=== PATIENT | female | born 1965 | race Caucasian/White ===

== ENCOUNTER 2018-07-01 14:01 | Outpatient (CLI) | payer MEDICARE ==
--- NOTE | 2018-07-01 16:18 | RAD ---
TWO VIEW CHEST SERIES: 07/01/18 COMPARISON: 01/17/08 FINDINGS: There is no consolidation, effusion, or pneumothorax. The cardiac silhouette is normal in size. There is surgical change at the low cervical spine. Chest is otherwise similar in appearance. IMPRESSION: No focal consolidation. POS: C
== END 2018-07-01 14:02 | disposition home or self-care (01) ==
LOC: RAD-FRANK 14:01
PROVIDERS: ATTEND Nurse Practitioner Family
DX: J10.1 Influenza due to other identified influenza virus with other respiratory manifestations (principal); J44.9 Chronic obstructive pulmonary disease, unspecified; F17.200 Nicotine dependence, unspecified, uncomplicated; R68.89 Other general symptoms and signs
CPT/HCPCS: 71046

== ENCOUNTER 2018-10-22 10:57 | Outpatient (CLI) | payer MEDICARE ==
--- NOTE | 2018-10-22 12:17 | BD ---
DEXA BONE MINERAL DENSITY STUDY: HISTORY: Osteoporosis screening. COMPARISON: None available. FINDINGS: LUMBAR SPINE BMD (g/cm2) T-SCORE Z-SCORE L1 0.962 -0.3 0.6 L2 1.008 -0.2 0.8 L3 1.000 -0.8 0.3 L4 0.965 -0.9 0.2 WHO CLASSIFICATION: Normal. BMD (g/cm2) T-SCORE Z-SCORE FEMORAL NECK: 0.620 -2.1 -1.0 TOTAL LEFT HIP: 0.759 -1.5 -0.8 WHO CLASSIFICATION: Osteopenia. IMPRESSION: Osteopenia, left femoral neck and total left hip. POS: CET
== END 2018-10-22 10:58 | disposition home or self-care (01) ==
LOC: BICMAMMO 10:57
PROVIDERS: ATTEND Nurse Practitioner Family
DX: Z12.31 Encounter for screening mammogram for malignant neoplasm of breast (principal); Z13.820 Encounter for screening for osteoporosis; M85.89 Other specified disorders of bone density and structure, multiple sites; R92.1 Mammographic calcification found on diagnostic imaging of breast
CPT/HCPCS: 77063; 77067; 77080

== ENCOUNTER 2021-02-16 23:26 | Emergency (ER) | payer MEDICARE, SELFPAY ==
[2021-02-17] MEDS ORDERED: Ondansetron ODT 4 MG TAB ONE ×2 (00:29→03:39)
[2021-02-17] MEDS ORDERED: Acetaminophen 500 MG TAB ONE (00:29)
[2021-02-17] MEDS ORDERED: traMADol HCl 50 MG TAB ONE (03:39)
== END 2021-02-17 04:19 | disposition home or self-care (01) ==
LOC: ERS 23:26
DX: S62.365A Nondisplaced fracture of neck of fourth metacarpal bone, left hand, initial encounter for closed fracture (principal); S40.012A Contusion of left shoulder, initial encounter; S00.83XA Contusion of other part of head, initial encounter; S00.432A Contusion of left ear, initial encounter; F31.9 Bipolar disorder, unspecified; Z79.899 Other long term (current) drug therapy; Y04.2XXA Assault by strike against or bumped into by another person, initial encounter
CPT/HCPCS: 29125; 70450; 70486; 72125; Q0162

== ENCOUNTER 2023-08-27 09:00 | Outpatient (CLI) | payer MEDICARE | END 2023-08-27 09:01 | disposition home or self-care (01) | LOC: BICULT 09:00 | PROVIDERS: ATTEND Nurse Practitioner Family | DX: L98.9 Disorder of the skin and subcutaneous tissue, unspecified (principal) | CPT/HCPCS: 76999 ==

== ENCOUNTER 2024-03-09 13:48 | Outpatient (CLI) | payer MEDICARE ==
[~2024-03-09 13:48] MED LIST: Iopamidol 370 76% 100 ML VIAL ONE
== END 2024-03-09 13:49 | disposition home or self-care (01) ==
LOC: CT 13:48
PROVIDERS: ATTEND Otolaryngology
DX: Q89.2 Congenital malformations of other endocrine glands (principal); E04.1 Nontoxic single thyroid nodule
CPT/HCPCS: 70490; Q9967